=== PATIENT | male | born 1985 | race Caucasian/White ===

== ENCOUNTER 2020-08-22 20:28 | Emergency (ER) | payer SELFPAY ==
[2020-08-22 20:43] VITALS: TEMP 98.2; BMI 25.0
[2020-08-22] MEDS ORDERED: IBUPROFEN 600 MG TABLET (FP) PO ONE ×2 (21:39→22:32)
[2020-08-22] MEDS ORDERED: LIDOCAINE PATCH REMOVAL MC SCH (22:00)
[2020-08-22] MEDS ORDERED: LIDOCAINE 5% TOPICAL PATCH TP ONE (22:06)
[2020-08-22] MEDS ORDERED: METHOCARBAMOL 500 MG TABLET PO ONE (22:06)
[2020-08-22 22:26] LABS: BASO % 0.6 % (0-2.0); EOS % 1.5 % (0-4.5); HEMATOCRIT 44.1 % (35.4-49); HEMOGLOBIN 15.5 GM/dL (11.7-16.9); LYMPH % 23.4 % (8-40); MCH 31.6 pg (25.7-33.7); MCHC 35.2 g/dl (32.0-35.9); MEAN CELL VOLUME 89.7 fl (80-96); MEAN PLT VOLUME 10.7 fl (7.5-11.1); MONO % 9.2 % (3.8-10.2); NEUT % 65.3 % (42.8-82.8); PLATELET COUNT 146 K/MM3 (134-434); RBC 4.91 M/mm3 (4.00-5.60); RDW 12.7 % (11.9-15.9); WHITE BLOOD COUNT 8.1 K/mm3 (4.0-10.0)
[2020-08-22] MEDS ORDERED: LIDOCAINE 5% TOPICAL PATCH ONE (22:32)
[2020-08-22] MEDS ORDERED: METHOCARBAMOL 500 MG TABLET ONE (22:32)
[2020-08-22 22:39] LABS: CHLORIDE 109 mmol/L (98-107); POTASSIUM 4.2 mmol/L (3.5-5.1); SODIUM 140 mmol/L (136-145)
[2020-08-22 22:42] LABS: ALBUMIN 4.1 g/dl (3.4-5.0); ANION GAP 4 MMOL/L (8-16); BLOOD UREA NITROGEN 18.6 mg/dL (7-18); CO2 27 mmol/L (21-32); GLUCOSE,RANDOM 102 mg/dL (74-106)
[2020-08-22 22:45] LABS: CREATININE 0.8 mg/dL (0.55-1.3); SGOT/AST 23 U/L (15-37); SGPT/ALT 45 U/L (13-61)
[2020-08-22 22:47] LABS: BILIRUBIN,TOTAL 0.5 mg/dL (0.2-1); TOT PROT 7.2 g/dl (6.4-8.2)
[2020-08-22 22:48] LABS: ALK PHOS 114 U/L (45-117)
[2020-08-22 23:19] VITALS: BP 128/88; PULSE 82
== END 2020-08-22 23:16 | disposition home or self-care (01) ==
LOC: JER 20:28
DX: R07.89 Other chest pain (principal)
CPT/HCPCS: 36415; 80053; 84484; 85025; 93005; 93010; 99285-25

== ENCOUNTER 2022-12-12 17:04 | Emergency (ER) | payer OTHER ==
[2022-12-12 17:16] VITALS: BP 136/92; PULSE 80; RESP 16; TEMP 98.1; BMI 32.2
== END 2022-12-12 18:23 | disposition home or self-care (01) ==
LOC: JERFT 17:04 → JER 17:04 → JERFT 18:23
DX: T78.40XA Allergy, unspecified, initial encounter (principal); R21 Rash and other nonspecific skin eruption; L29.9 Pruritus, unspecified
CPT/HCPCS: 99283-25

== ENCOUNTER 2023-04-26 13:46 | Emergency (ER) | payer OTHER ==
[2023-04-26 14:08] VITALS: BP 124/85; PULSE 75; RESP 18; TEMP 98; BMI 30.7
== END 2023-04-26 14:38 | disposition home or self-care (01) ==
LOC: JERFT 13:46
DX: H02.845 Edema of left lower eyelid (principal); H00.025 Hordeolum internum left lower eyelid
CPT/HCPCS: 99283-25